=== PATIENT | female | born 1970 | race Caucasian/White ===

== ENCOUNTER 2019-08-06 11:35 | Emergency (ER) | payer OTHER ==
[2019-08-06 12:01] VITALS: BP 130/72
--- NOTE | 2019-08-06 12:16 | UC ---
Lower Extremity/Ankle HPI - HPI Summary HPI Summary: 49 yo female presents with fall. She tells me that [place] in [place] and made her way up onto a unicorn statue that is about 6 feet off the ground. She fell off of said statue and landed on her feet and fell onto her hands and wrists. Thinks she rolled her left ankle. No head injury or LOC. She had little pain at the time and was ambulatory immediately following. Last night she had some left wrist pain and applied an ESTELITA wrap. Today she noticed bruising to her volar left wrist which concerns her. She has very little pain and is weight bearing without issue. FROM in all joints. Denies numbness or tingling. - History of Current Complaint Chief Complaint: UCLowerExtremity Stated Complaint: ANKLE INJURY Time Seen by Provider: 08/06/19 12:01 Hx Obtained From: Patient Onset/Duration: Sudden Onset Severity Initially: Moderate Severity Currently: Mild Pain Intensity: 3 Pain Scale Used: 0-10 Numeric - Allergies/Home Medications Allergies/Adverse Reactions: Allergies Allergy/AdvReac Type Severity Reaction Status Date / Time No Known Allergies Allergy Verified 08/06/19 12:01 PMH/Surg Hx/FS Hx/Imm Hx Psychological History: Anxiety, Depression - Surgical History Surgical History: None Surgery Procedure, Year, and Place: c section. tonsils - Social History Occupation: Employed Full-time Lives: With Family Alcohol Use: Rare Substance Use Type: None Smoking Status (MU): Never Smoked Tobacco Review of Systems All Other Systems Reviewed And Are Negative: No Constitutional: Positive: Negative Skin: Positive: Negative Respiratory: Positive: Negative Cardiovascular: Positive: Negative Neurovascular: Positive: Negative Musculoskeletal: Positive: Other: - b/l ankle and wrist pain Neurological: Positive: Negative Psychological: Positive: Negative Physical Exam - Summary Physical Exam Summary: GENERAL: NAD. WDWN. No pain distress. SKIN: LEFT WRIST: volar aspect with mild ecchymosis. No open wounds. CHEST: No accessory muscle use. Breathing comfortably and in no distress. CV: Pulses intact PT and DP. B/l radial and ulnar. Cap refill <2seconds MSK: LEFT ANKLE: Mild edema about lateral malleolus. FROM. NTTP. Strength 5/5. No obvious bony deformities. Negative talar tilt. No increased laxity. Negative Wainscott test. RIGHT ANKLE: FROM. NTTP. Strength 5/5. No edema or obvious bony deformities. Negative talar tilt. No increased laxity. Negative Wainscott test. RIGHT WRIST: FROM. NTTP. Strength 5/5 including senior director insight strength. No edema or obvious bony deformities. No snuffbox tenderness. LEFT WRIST: Mild TTP about volar aspect without point tenderness. FROM. Strength 5/5 including senior director insight strength. Mild edema at volar aspect. No snuffbox tenderness. NEURO: Alert. Sensations intact and symmetric B/L LEs PSYCH: Age appropriate behavior. Triage Information Reviewed: Yes Vital Signs: Initial Vital Signs Temp 98.8 F 08/06/19 11:55 Pulse 74 08/06/19 11:55 Resp 18 08/06/19 11:55 BP 130/72 08/06/19 11:55 Pulse Ox 99 08/06/19 11:55 Vital Signs Reviewed: Yes Diagnostics - Radiology Left wrist XR Radiology Interpretation Completed By: Radiologist Summary of Radiographic Findings: IMPRESSION: NO ACUTE OSSEOUS INJURY. IF SYMPTOMS PERSIST, RECOMMEND REPEAT IMAGING. Lower Extremity Course/Dx - Course Course Of Treatment: XR as above. Suspect wrist sprain/contusion. Advised to continue RICE therapy and f/u if symptoms do not improve - Differential Dx/Diagnosis Provider Diagnosis: Fall, Contusion Discharge ED - Sign-Out/Discharge Documenting (check all that apply): Patient Departure All imaging exams completed and their final reports reviewed: Yes - Discharge Plan Condition: Stable Disposition: HOME Patient Education Materials: Wrist Sprain (ED) Referrals: Anna Liang MD [Primary Care Provider] - Additional Instructions: If you develop a fever, shortness of breath, chest pain, new or worsening symptoms - please call your PCP or go to the ED immediately. Given that you wish to make it to your class; The X-ray appears normal from my interpretation, but the radiologist will review this soon and we will call you with any changes. - Billing Disposition and Condition Condition: STABLE Disposition: Home
== END 2019-08-06 12:29 | disposition home or self-care (01) ==
LOC: UCEAST 11:35
DX: S90.02XA Contusion of left ankle, initial encounter (principal); M25.532 Pain in left wrist; M25.531 Pain in right wrist; W19.XXXA Unspecified fall, initial encounter; Y92.9 Unspecified place or not applicable
CPT/HCPCS: 99211; G0463